=== PATIENT | female | born 1975 | race Caucasian/White ===

== ENCOUNTER 2017-06-03 17:27 | Emergency (ER) | payer OTHER ==
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
[~2017-06-03 17:27] MED LIST: ALDOMET250 MG PO; ALPRAZOLAM PO; BIRTH CONTROL PILL PO; CERTAGEN PO; FLEXERIL10 MG PO; KEFLEX PO; LANOXIN125 MCG PO; METOPROLOL SUCC50 MG PO; NAPROSYN500 MG PO; PRENATAL MULITV1 TAB PO; PREVACID PO; PRILOSEC PO; PROTONIX PO; TAMIFLU75 MG PO; TENORETIC 50 TA1 TAB PO; VISTARIL PO; ZYRTEC10 M1 PO
== END 2017-06-03 20:20 | disposition home or self-care (01) ==
LOC: SED 17:27
DX: S46.912A Strain of unspecified muscle, fascia and tendon at shoulder and upper arm level, left arm, initial encounter (principal); S16.1XXA Strain of muscle, fascia and tendon at neck level, initial encounter; S29.9XXA Unspecified injury of thorax, initial encounter; I10 Essential (primary) hypertension; K21.9 Gastro-esophageal reflux disease without esophagitis; Z90.710 Acquired absence of both cervix and uterus; Z79.899 Other long term (current) drug therapy; V43.62XA Car passenger injured in collision with other type car in traffic accident, initial encounter
CPT/HCPCS: 72040; 73030; 99283

== ENCOUNTER → 2017-06-12 | Outpatient (CLI) | payer OTHER ==
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
== END | disposition home or self-care (01) ==
LOC: SRAD 14:14
DX: M54.5 Low back pain (principal)
CPT/HCPCS: 72100